=== PATIENT | female | born 1995 | race Caucasian/White ===

== ENCOUNTER 2019-12-01 01:46 | Emergency (ER) | payer MEDICAID ==
[~2019-12-01] VITALS: Ht 160 cm; Wt 121.1 kg
[2019-12-01 01:50] VITALS: BP 158/72
[2019-12-01] MEDS ORDERED: KETOROLAC 30 MG/1 ML ONE (02:08)
--- NOTE | 2019-12-01 02:13 | NUR ---
Break RN: patient medicated for pain. awaiting X ray.
[2019-12-01] MEDS ORDERED: KETOROLAC 30 MG/1 ML IM ONE (02:30)
--- NOTE | 2019-12-01 03:07 | NUR ---
PT D/C WITH D/C SUMMARY AND SCRIPTS. ALL QUESTIONS ANSWERED. PT AMBULATES TO REGISTRATION DESK WITH STEADY GAIT FOR D/C HOME. PT DENIES ANY OTHER NEEDS PERTAINING TO THIS VISIT.
== END 2019-12-01 03:13 ==
LOC: ED 02:11
DX: M54.12 Radiculopathy, cervical region (principal); R20.2 Paresthesia of skin
CPT/HCPCS: 72050; 96372; 99283; J1885

== ENCOUNTER 2020-07-14 13:31 | Emergency (ER) | payer MEDICAID ==
[~2020-07-14] VITALS: Ht 160 cm; Wt 114.1 kg
--- NOTE | 2020-07-14 13:43 | NUR ---
pt to room from lobby
[2020-07-14 14:08] LABS: BASOPHILS % (AUTO) 1 % (0-1); EOSINOPHILS % (AUTO) 1 % (1-7); LYMPHOCYTES % (AUTO) 22 % (22-44); MEAN CORPUSCULAR HEMOGLOBIN 23.1 pg (27.0-34.8); MEAN CORPUSCULAR HGB CONC 31.8 g/dL (32.4-35.8); MEAN PLATELET VOLUME 8.2 fL (7.4-10.4); MONOCYTES % (AUTO) 7 % (2-9); NEUTROPHILS % (AUTO) 70 % (42-75); PLATELET COUNT 460 x10^3/uL (130-400); RED BLOOD COUNT 4.87 x10^6/uL (3.82-5.3); RED CELL DISTRIBUTION WIDTH 14.8 % (9.6-15.2)
[2020-07-14 14:14] LABS: ALANINE AMINOTRANSFERASE 32 U/L (12-78); ALBUMIN 3.7 g/dL (3.4-5.0); ANION GAP 5 mmol/L (5-15); CALCIUM 8.8 mg/dL (8.5-10.1); CHLORIDE 110 mmol/L (98-107); CREATININE 0.69 mg/dL (0.55-1.02)
[2020-07-14 14:19] LABS: ALKALINE PHOSPHATASE 103 U/L (45-117); BILIRUBIN,TOTAL 0.3 mg/dL (0.2-1.0); TOTAL PROTEIN 7.9 g/dL (6.4-8.2)
[2020-07-14] MEDS ORDERED: ONDANSETRON 2MG/ML, 2ML IVPush ONE (14:30)
[2020-07-14] MEDS ORDERED: SODIUM CHLORIDE FLUSH 10ML SYR IVF ONE (14:30)
[2020-07-14] MEDS ORDERED: MORPHINE SULFATE 4 MG/ML, 1ML IVPush PRN (14:30)
--- NOTE | 2020-07-14 14:31 | NUR ---
PT STATES SHE WAS SEEN AT URGENT CARE AT [facility]; WAS ADVISED TO COME TO ED FOR FURTHER EVAL (RULE OUT APPY). PAIN STARTED 0500 THIS AM "EVERYWHERE IN MY STOMACH" CURRENTLY RLQ, RUQ, UMBILICAL AREA. DENIES N/V, DIARRHEA, CONSTIPATION. TOOK IBUPROFEN AT 1300. LAST ORAL INTAKE: 1330. LAST BM: TODAY. LMP: 06/04/20. DENIES RECENT SEXUAL ACTIVITY.
[2020-07-14 14:39] LABS: HYPOCHROMIA 1+; MD MORPH REVIEW ONLY; MICROCYTOSIS 1+
[2020-07-14 14:40] LABS: POLYCHROMASIA 1+
[2020-07-14 14:41] LABS: <PLATELET ESTIMATE> INCREASED; <PLT MORPHOLOGY> NORMAL PLT MORPH; OVALOCYTES 1+
--- NOTE | 2020-07-14 14:47 | NUR ---
NEED IV FOR CT EXAM
[2020-07-14 14:50] LABS: MICROSCOPIC AUTO
[2020-07-14] MEDS ORDERED: MORPHINE SULFATE 4 MG/ML, 1ML ONE (15:02)
[2020-07-14] MEDS ORDERED: ONDANSETRON 2MG/ML, 2ML ONE (15:02)
--- NOTE | 2020-07-14 15:07 | NUR ---
ZOFRAN AND MORPHINE GIVEN PER EMAR. PT AWAITING CT
[2020-07-14] MEDS ORDERED: OMNIPAQUE 350 MG/ML, 100ML BOTTLE ONE (15:38)
--- NOTE | 2020-07-14 16:13 | NUR ---
PT ENDORSED TO GEORGE MARTINEZ RN. PT AWAITING DISPOSITION.
--- NOTE | 2020-07-14 16:20 | NUR ---
task rn: pt resting in [facility]. vss. watching tv. on cell phone
--- NOTE | 2020-07-14 17:02 | NUR ---
PT REPORT FROM BENSON MARTINEZ. PT CARE TO BE RESUMED.
[2020-07-14 17:16] VITALS: BP 118/68
--- NOTE | 2020-07-14 17:16 | NUR ---
PT REPORTS DECREASED PAIN. PT AWAITING DISPOSITION
--- NOTE | 2020-07-14 17:35 | NUR ---
PT AMBULATORY TO & FROM [facility] W/OUT INCIDENT; GAIT STEADY.
== END 2020-07-14 14:48 ==
LOC: ED 14:47
DX: R10.31 Right lower quadrant pain (principal)
CPT/HCPCS: 36415; 74177; 80053; 81001; 83690; 84703; 85025; 87086; 96374; 96375; 99285; J2270; J2405; Q9967

== ENCOUNTER 2021-01-06 12:14 | Emergency (ER) | payer BC, MEDICAID ==
[~2021-01-06] VITALS: Ht 160 cm; Wt 113.7 kg
[2021-01-06 12:19] VITALS: BP 134/84
== END 2021-01-06 14:28 ==
LOC: ED 13:56
DX: H60.502 Unspecified acute noninfective otitis externa, left ear (principal)
CPT/HCPCS: 99283